=== PATIENT | female | born 1965 | race Caucasian/White ===

== ENCOUNTER 2024-06-26 06:28 | Day surgery (SDC) | payer MEDICAID ==
[~2024-06-26] VITALS: Ht 163.8 cm; Wt 102.5 kg
[2024-06-26] MEDS ORDERED: SIMETHICONE 40 MG/0.6 ML ML ONE (07:05)
[2024-06-26] MEDS ORDERED: MIDAZOLAM HCL 5 MG/5 ML VIAL ONE (07:05)
[2024-06-26] MEDS ORDERED: MEPERIDINE 100 MG INJ. 100 MG/ML VIAL ONE (07:06)
[2024-06-26 07:43] VITALS: O2SAT 99
[2024-06-26] MEDS ORDERED: BENZOCAINE 20% 0.5mL UD SPRAY MM ONE (09:14)
[2024-06-26] MEDS ORDERED: DIPHENHYDRAMINE INJ 50 MG/ML VIAL ONE (09:30)
[2024-06-26 13:50] VITALS: BP_SYST 135; PULSE 78; RESP 17
== END 2024-06-26 12:18 | disposition home or self-care (01) ==
LOC: SGI 06:28 → SMU 06:29 → SGI 12:18
PROVIDERS: ATTEND Student in an Organized Health Care Education/Training Program
DX: R19.4 Change in bowel habit (principal); D12.8 Benign neoplasm of rectum; K29.50 Unspecified chronic gastritis without bleeding; B96.81 Helicobacter pylori [H. pylori] as the cause of diseases classified elsewhere; K21.9 Gastro-esophageal reflux disease without esophagitis; K57.30 Diverticulosis of large intestine without perforation or abscess without bleeding; K64.8 Other hemorrhoids; F17.210 Nicotine dependence, cigarettes, uncomplicated; E66.01 Morbid (severe) obesity due to excess calories; Z68.38 Body mass index [BMI] 38.0-38.9, adult; Z79.899 Other long term (current) drug therapy
CPT/HCPCS: 43239; 45334; 45385; 88305; 88312; 88313; J1200; J2175; J2250